=== PATIENT | female | born 1975 | race Caucasian/White ===

== ENCOUNTER 2024-01-13 04:01 | Emergency (ER) | payer SELFPAY ==
[~2024-01-13] VITALS: Ht 152.4 cm; Wt 36.7 kg
[2024-01-13 04:17] VITALS: BP_SYST 127; PULSE 81; RESP 18; TEMP 98.3; O2SAT 100
[2024-01-13 04:58] VITALS: BP_SYST 127; PULSE 81; RESP 18; TEMP 98.3; O2SAT 100
== END 2024-01-13 04:58 | disposition home or self-care (01) ==
LOC: SED 04:01
DX: Z00.8 Encounter for other general examination (principal); R03.0 Elevated blood-pressure reading, without diagnosis of hypertension
CPT/HCPCS: 99283